=== PATIENT | female | born 1945 | race Caucasian/White ===

== ENCOUNTER 2017-11-17 18:24 | Inpatient (IN) | payer MEDICARE, BC ==
[~2017-11-17 18:24] MED LIST: CEFAZOLIN 1 GM INJ; DEXAMETHASONE 4 MG/ML 1 ML INJ; LIDOCAINE 2% (SDV) 5 ML INJ; METOCLOPRAMIDE 10 MG INJ; ONDANSETRON 4 MG INJ
[2017-11-17] MEDS: DEXTROSE 5%-0.9% NACL 1,000 ML IV (19:08)
[2017-11-17 19:36] LABS: ADD MAN DIFF? NO
[2017-11-17 19:37] LABS: BASOPHIL # 0.1 10^3/ul (0.0-0.1); BASOPHILS % 0.7 % (0.0-2.0); EOSINOPHILS # 0.2 10^3/ul (0.0-0.5); EOSINOPHILS % 2.7 % (0.0-7.0); HEMATOCRIT 38.8 % (37.0-47.0); HEMOGLOBIN 12.2 g/dl (12.0-16.0); LYMPHOCYTES # 2.7 10^3/ul (0.8-2.9); LYMPHOCYTES % 31.1 % (15.0-51.0); MEAN CORPUSCULAR HEMOGLOBIN 24.2 pg (29.0-33.0); MEAN CORPUSCULAR HGB CONC 31.4 g/dl (32.0-37.0); MEAN CORPUSCULAR VOLUME 76.8 fl (82.0-101.0); MEAN PLATELET VOLUME 10.3 fl (7.4-10.4); MONOCYTE # 0.7 10^3/ul (0.3-0.9); MONOCYTES % 7.9 % (0.0-11.0); NEUTROPHILS % 57.4 % (39.0-77.0); PLATELET COUNT 340 10^3/UL (140-415); RED BLOOD COUNT 5.05 10^6/ul (4.20-5.40); RED CELL DISTRIBUTION WIDTH 18.2 % (11.5-14.5)
[2017-11-17 19:37] LABS: WHITE BLOOD COUNT 8.8 10^3/ul (4.8-10.8)
[2017-11-17 19:54] LABS: ALANINE AMINOTRANSFERASE 18 IU/L (13-69); ALBUMIN/GLOBULIN RATIO 1.08; ALKALINE PHOSPHATASE 96 IU/L (42-121); ANION GAP 13 (8-16); ASPARTATE AMINO TRANSFERASE 24 IU/L (15-46); BILIRUBIN,INDIRECT 0.4 mg/dl (0-1.1); BILIRUBIN,TOTAL 0.4 mg/dl (0.2-1.3); BLOOD UREA NITROGEN 16 mg/dl (7-20); CALCIUM 9.9 mg/dl (8.4-10.2); CARBON DIOXIDE 24 mmol/L (21-31); CHLORIDE 110 mmol/L (97-110); CREATININE 0.91 mg/dl (0.44-1.00); GLUCOSE 95 mg/dl (70-220); POTASSIUM 3.7 mmol/L (3.5-5.1); SODIUM 143 mmol/L (135-144); TOTAL PROTEIN 7.7 g/dl (6.1-8.1)
[2017-11-17 19:56] LABS: INR 0.87; PROTIME 11.9 Sec (11.9-14.9); PT RATIO 0.9
[2017-11-17 19:57] LABS: PARTIAL THROMBOPLASTIN TIME 27.5 Sec (25.0-35.0)
[2017-11-17] MEDS: PANTOPRAZOLE 40 MG INJ IV (20:00)
[2017-11-17] MEDS ORDERED: ACETAMINOPHEN 325 MG TAB PO (21:00)
[2017-11-17] MEDS: BUPIVACAINE 0.25% (MPF) 30 ML INJ (21:12)
[2017-11-17] MEDS ORDERED: FENTAnyl 50 MCG/ML VIAL (21:46)
[2017-11-17] MEDS ORDERED: MIDAZOLAM 1 MG/ML 2 ML INJ (21:46)
[2017-11-17] MEDS ORDERED: SUCCINYLCHOLINE CHLORIDE 100 MG/5 ML SYG IV (21:57)
[2017-11-17] MEDS ORDERED: ROCURONIUM 50 MG INJ (21:57)
[2017-11-17] MEDS ORDERED: PROPOFOL 20 ML (21:57)
[2017-11-17] MEDS ORDERED: MEPERIDINE 25 MG INJ IV (22:00)
[2017-11-17] MEDS ORDERED: KETOROLAC 30 MG INJ IV (22:00)
[2017-11-17] MEDS ORDERED: LABETALOL HCL 20MG INJ IV (22:00)
[2017-11-17] MEDS ORDERED: IPRATROPIUM (NEB) 0.5 MG/2.5 ML AMP HHN (22:00)
[2017-11-17] MEDS ORDERED: hydrALAzine 20 MG INJ IV (22:00)
[2017-11-17] MEDS ORDERED: DIPHENHYDRAMINE 50 MG INJ IV (22:00)
[2017-11-17] MEDS ORDERED: HYDROmorphONE 1 MG/5 ML IV SYRINGE IV ×2 (22:00)
[2017-11-17] MEDS ORDERED: FENTAnyl 50 MCG/ML VIAL IV (22:00)
[2017-11-17] MEDS: CEFAZOLIN 2 GM/50 ML (PMX) 50 ML IVPB (22:00)
[2017-11-17] MEDS ORDERED: ROPIVACAINE 0.5 % 30 ML VIAL (22:44)
[2017-11-17] MEDS ORDERED: SUGAMMADEX SODIUM 200 MG/2 ML VIAL IV ×2 (22:49→22:59)
[2017-11-17] MEDS: HYDROmorphONE 1 MG/5 ML IV SYRINGE IV (23:20)
[2017-11-17] MEDS: FENTAnyl 50 MCG/ML VIAL IV (23:21)
[2017-11-17] MEDS: ONDANSETRON 4 MG INJ IV (23:21)
[2017-11-17] MEDS: KETOROLAC 15 MG INJ IV (23:28)
[2017-11-18] MEDS: D5-NS + KCL 20 MEQ 1,000 ML IV ×5 (00:26→23:00)
[2017-11-18] MEDS: HYDROCODONE/APAP (5/325) TAB PO ×2 (00:27→19:57)
[2017-11-18] MEDS: KETOROLAC 15 MG INJ IV ×4 (03:00→20:42)
[2017-11-18] MEDS: DEXTROSE 5%-0.9% NACL 1,000 ML IV (03:40)
[2017-11-18] MEDS: ONDANSETRON 4 MG INJ IV ×3 (05:41→20:41)
[2017-11-18] MEDS: PANTOPRAZOLE 40 MG INJ IV (05:42)
[2017-11-18] MEDS: CEFAZOLIN 2 GM/50 ML (PMX) 50 ML IVPB ×2 (05:42→12:44)
[2017-11-18] MEDS: morphine 2 MG INJ IV (05:43)
[2017-11-18] MEDS: ENOXAPARIN 40 MG/0.4 ML SYG SC (06:27)
[2017-11-18 11:20] LABS: ADD UMIC YES; UR ASCORBIC ACID NEGATIVE (NEGATIVE); UR BACTERIA FEW /HPF (NONE SEEN); UR BILIRUBIN (Dip) NEGATIVE (NEGATIVE); UR BLOOD (Dip) 1+ mg/dL (NEGATIVE); UR CALCIUM OXALATE CRYSTAL MANY /HPF (NONE SEEN); UR CLARITY SLIGHTLY CLOUDY (CLEAR); UR COLOR YELLOW (YELLOW); UR GLUCOSE (Dip) NEGATIVE (NEGATIVE); UR KETONES (Dip) NEGATIVE (NEGATIVE); UR LEUKOCYTE ESTERASE (Dip) NEGATIVE Leu/ul (NEGATIVE); UR MUCUS FEW /HPF (NONE SEEN); UR NITRITE (Dip) NEGATIVE (NEGATIVE); UR RBC 0 /HPF (0-5); UR SPECIFIC GRAVITY (Dip) 1.018 (1.003-1.030); UR TOTAL PROTEIN (Dip) NEGATIVE (NEGATIVE); UR UROBILINOGEN (Dip) NEGATIVE (NEGATIVE); UR WBC 2 /HPF (0-5)
[2017-11-19] MEDS: D5-NS + KCL 20 MEQ 1,000 ML IV (02:22)
[2017-11-19] MEDS: KETOROLAC 15 MG INJ IV (03:07)
[2017-11-19] MEDS: PANTOPRAZOLE 40 MG INJ IV (06:19)
[2017-11-19] MEDS: ENOXAPARIN 40 MG/0.4 ML SYG SC (06:21)
[2017-11-19 06:39] LABS: ADD MAN DIFF? NO
[2017-11-19 06:41] LABS: BASOPHILS % 0.4 % (0.0-2.0); EOSINOPHILS # 0.1 10^3/ul (0.0-0.5); HEMATOCRIT 33.7 % (37.0-47.0); HEMOGLOBIN 10.6 g/dl (12.0-16.0); LYMPHOCYTES # 1.1 10^3/ul (0.8-2.9); LYMPHOCYTES % 14.2 % (15.0-51.0); MEAN CORPUSCULAR HEMOGLOBIN 24.3 pg (29.0-33.0); MEAN CORPUSCULAR HGB CONC 31.5 g/dl (32.0-37.0); MEAN CORPUSCULAR VOLUME 77.3 fl (82.0-101.0); MEAN PLATELET VOLUME 10.1 fl (7.4-10.4); MONOCYTE # 0.5 10^3/ul (0.3-0.9); MONOCYTES % 6.7 % (0.0-11.0); NEUTROPHIL # 6.1 10^3/ul (1.6-7.5); NEUTROPHILS % 77.2 % (39.0-77.0); PLATELET COUNT 273 10^3/UL (140-415); RED BLOOD COUNT 4.36 10^6/ul (4.20-5.40); RED CELL DISTRIBUTION WIDTH 18.6 % (11.5-14.5)
[2017-11-19 06:41] LABS: WHITE BLOOD COUNT 7.9 10^3/ul (4.8-10.8)
[2017-11-19 07:18] LABS: ANION GAP 8 (8-16); BLOOD UREA NITROGEN 5 mg/dl (7-20); CALCIUM 8.7 mg/dl (8.4-10.2); CARBON DIOXIDE 26 mmol/L (21-31); CHLORIDE 112 mmol/L (97-110); CREATININE 0.69 mg/dl (0.44-1.00); GLUCOSE 118 mg/dl (70-220); MAGNESIUM 1.8 mg/dl (1.7-2.5); SODIUM 142 mmol/L (135-144)
[2017-11-19] MEDS ORDERED: IBUPROFEN 600 MG TAB PO (09:00)
[2017-11-19] MEDS: hydrALAzine 20 MG INJ IV (12:36)
[2017-11-19] MEDS: ONDANSETRON 4 MG INJ IV (13:35)
[2017-11-19] MEDS: morphine 2 MG INJ IV (13:39)
[2017-11-19] MEDS: SOD CHLORIDE 0.9% 1,000 ML IV (16:44)
[2017-11-19] MEDS: METOCLOPRAMIDE 10 MG INJ IV (16:46)
[2017-11-20] MEDS: METOCLOPRAMIDE 10 MG INJ IV ×5 (00:19→23:32)
[2017-11-20] MEDS: PANTOPRAZOLE 40 MG INJ IV (05:35)
[2017-11-20] MEDS: ENOXAPARIN 40 MG/0.4 ML SYG SC (05:41)
[2017-11-20 06:49] LABS: ADD MAN DIFF? NO
[2017-11-20 06:56] LABS: WHITE BLOOD COUNT 8.4 10^3/ul (4.8-10.8)
[2017-11-20 06:56] LABS: BASOPHIL # 0.1 10^3/ul (0.0-0.1); BASOPHILS % 0.7 % (0.0-2.0); EOSINOPHILS # 0.2 10^3/ul (0.0-0.5); HEMATOCRIT 36.1 % (37.0-47.0); HEMOGLOBIN 11.5 g/dl (12.0-16.0); LYMPHOCYTES # 1.7 10^3/ul (0.8-2.9); MEAN CORPUSCULAR HEMOGLOBIN 24.4 pg (29.0-33.0); MEAN CORPUSCULAR HGB CONC 31.9 g/dl (32.0-37.0); MEAN CORPUSCULAR VOLUME 76.6 fl (82.0-101.0); MEAN PLATELET VOLUME 10.2 fl (7.4-10.4); MONOCYTE # 0.7 10^3/ul (0.3-0.9); MONOCYTES % 8.7 % (0.0-11.0); NEUTROPHIL # 5.7 10^3/ul (1.6-7.5); NEUTROPHILS % 68.2 % (39.0-77.0); PLATELET COUNT 294 10^3/UL (140-415); RED BLOOD COUNT 4.71 10^6/ul (4.20-5.40); RED CELL DISTRIBUTION WIDTH 18.5 % (11.5-14.5)
[2017-11-20 07:23] LABS: ALBUMIN 3.3 g/dl (3.3-4.9); ANION GAP 11 (8-16); BLOOD UREA NITROGEN 9 mg/dl (7-20); CALCIUM 9.3 mg/dl (8.4-10.2); CARBON DIOXIDE 25 mmol/L (21-31); CHLORIDE 109 mmol/L (97-110); CREATININE 0.76 mg/dl (0.44-1.00); GLUCOSE 95 mg/dl (70-220); MAGNESIUM 1.9 mg/dl (1.7-2.5); POTASSIUM 3.7 mmol/L (3.5-5.1); SODIUM 141 mmol/L (135-144)
[2017-11-20] MEDS: SOD CHLORIDE 0.9% 1,000 ML IV (13:06)
[2017-11-20] MEDS: FERROUS SULFATE (EC) 325 MG TAB PO (20:33)
[2017-11-21] MEDS: ENOXAPARIN 40 MG/0.4 ML SYG SC (06:18)
[2017-11-21] MEDS: PANTOPRAZOLE 40 MG INJ IV (06:18)
[2017-11-21] MEDS: METOCLOPRAMIDE 10 MG INJ IV (06:19)
[2017-11-21 07:33] LABS: ADD MAN DIFF? NO
[2017-11-21 07:40] LABS: BASOPHIL # 0.1 10^3/ul (0.0-0.1); BASOPHILS % 0.7 % (0.0-2.0); EOSINOPHILS # 0.3 10^3/ul (0.0-0.5); EOSINOPHILS % 4.3 % (0.0-7.0); HEMATOCRIT 36.4 % (37.0-47.0); HEMOGLOBIN 11.4 g/dl (12.0-16.0); LYMPHOCYTES # 1.9 10^3/ul (0.8-2.9); LYMPHOCYTES % 27.7 % (15.0-51.0); MEAN CORPUSCULAR HEMOGLOBIN 23.7 pg (29.0-33.0); MEAN CORPUSCULAR HGB CONC 31.3 g/dl (32.0-37.0); MEAN CORPUSCULAR VOLUME 75.7 fl (82.0-101.0); MEAN PLATELET VOLUME 10.1 fl (7.4-10.4); MONOCYTE # 0.5 10^3/ul (0.3-0.9); MONOCYTES % 7.7 % (0.0-11.0); NEUTROPHIL # 4.2 10^3/ul (1.6-7.5); NEUTROPHILS % 59.5 % (39.0-77.0); PLATELET COUNT 314 10^3/UL (140-415); RED BLOOD COUNT 4.81 10^6/ul (4.20-5.40); RED CELL DISTRIBUTION WIDTH 18.5 % (11.5-14.5)
[2017-11-21 08:02] LABS: ANION GAP 9 (8-16); BLOOD UREA NITROGEN 12 mg/dl (7-20); CALCIUM 9.3 mg/dl (8.4-10.2); CARBON DIOXIDE 29 mmol/L (21-31); CHLORIDE 110 mmol/L (97-110); CREATININE 0.81 mg/dl (0.44-1.00); GLUCOSE 104 mg/dl (70-220); MAGNESIUM 1.9 mg/dl (1.7-2.5); POTASSIUM 3.9 mmol/L (3.5-5.1); SODIUM 144 mmol/L (135-144)
[2017-11-21] MEDS: FERROUS SULFATE (EC) 325 MG TAB PO (09:00)
== END 2017-11-21 13:15 | disposition home or self-care (01) | DRG 354 ==
LOC: 2NE 18:24
PROC: 0WUF0JZ Supplement Abdominal Wall with Synthetic Substitute, Open Approach (ICD-10-PCS; principal; 2017-11-17 21:00)
DX: K43.6 Other and unspecified ventral hernia with obstruction, without gangrene (principal); K56.7 Ileus, unspecified; R32 Unspecified urinary incontinence; K21.9 Gastro-esophageal reflux disease without esophagitis; N32.81 Overactive bladder; E78.5 Hyperlipidemia, unspecified
CPT/HCPCS: 71045; 80048; 80053; 81001; 82040; 83735; 85025; 85610; 85730; 88302; 93005